=== PATIENT | male | born 1965 | race Caucasian/White ===

== ENCOUNTER → 2022-09-23 12:45 | Outpatient (BNVA) | payer OTHER, SELFPAY | PROVIDERS: PCP Internal Medicine; Visit Provider Neurological Surgery | DX: M51.36 Other intervertebral disc degeneration, lumbar region (principal) | CPT/HCPCS: 99211; 99212 ==

== ENCOUNTER → 2022-10-26 13:00 | Outpatient (BNVA) | payer OTHER, SELFPAY | PROVIDERS: PCP Internal Medicine; Visit Provider Anesthesiology | DX: M51.36 Other intervertebral disc degeneration, lumbar region (principal); M47.816 Spondylosis without myelopathy or radiculopathy, lumbar region; M47.817 Spondylosis without myelopathy or radiculopathy, lumbosacral region; G89.4 Chronic pain syndrome | CPT/HCPCS: 99202 ==

== ENCOUNTER 2023-01-04 14:11 | Outpatient (AMB) | payer OTHER, SELFPAY ==
--- NOTE | 2023-01-04 14:12 | MHC.OFFVIS ---
Intake Vital Signs 01/04/23 14:23 Height 5 ft 9 in Weight 179 lb BMI 26.4 BP 134/78 Blood Pressure Location Rt brachial Position Sitting Respiration 18 Pulse 63 Pulse Source Pulse Oximeter Pulse Oximetry (%) 97 Oxygen Delivery Method Room Air Intake Visit Reasons: Follow Up/Disc Degen Allergies No Known Allergies Allergy (Verified 01/04/23 14:24) HPI HPI Comments History of Present Illness Details Markus?is back in my office to discuss the reason why the insurance company denied the medial branch block diagnostic I scheduled in the past for this patient. He had extensive physical therapy in the past. He tried NSAID to treat his pain. He tries home stretches and those measures are minimally helpful for his pain. However he wants some sort of better and more continual solution for his pain. I will schedule him for diagnostic medial branch block L3-L4 dorsal ramus L5. Prior: complains on pain in lower back with radiation into bilateral lower extremities to the levels of the upper hips only.he is suffering from scoliosis.? he is working part-time.? He reports that he was physically active but with years in the advancement of this pain he stop performing his exercises.?? He was under care of Dr. Pierre in the past for ACDF surgery C5-C6, he went for the consultation to Dr. Ames, who examine his MRI and did not find any reason to perform surgery on this gentleman.? He reports that he had images of the lumbar spine MRI of the lumbar spine dictated as below.? He had physical therapy chiropractic manipulations massage therapy acupuncture therapy and 10s unit.? All of those help his pain in the back but they were short lived for his pain control.? He reports that he had epidural steroid injection done by Dr.Bernache marie and those were helpful for 3-4 weeks after the procedure however the pain all with would come back.? He reports that he receives 20 mg of oxycodone to times a day for his pain.? This is significant dose of the opioid medications.? His past medical history is negative.? The past surgical history is ACDF C5-C6.? Social history he denies smoking cigarettes denies drinking alcohol denies caffeinated beverages denies recreational drugs Review of Systems Const All systems reviewed & are unremarkable except as noted in HPI and below ENT Reports Normal hearing present Neuro Reports Normal hearing present, Denies Abnormal speech present, Denies confusion and Denies Sensory deficit (Neuro) Psych Denies confusion Physical Exam Vital Signs: Last Vital Signs Pulse 63 01/04/23 14:23 Resp 18 01/04/23 14:23 BP 134/78 01/04/23 14:23 Pulse Ox 97 01/04/23 14:23 Oxygen Delivery Method Room Air 01/04/23 14:23 BMI result Body Mass Index 26.4 Const General: healthy appearing, no acute distress and well developed; No confusion Nutritional Appearance: average body habitus and other (Well developed and very muscular.) Orientation/consciousness: patient oriented x3 and No confusion Eyes General: appearance normal, both eyes and all related structures Pupils: Equal, round and reactive pupils present EOM: EOMs intact bilaterally Neck Neck: Yes full ROM Chest Chest palpation & inspection: normal inspection of the chest Resp Effort & Inspection: normal respiratory effort, able to speak in complete sentences, normal respiratory pattern, no audible wheezes and no cough Cardio Jugular venous distension: no JVD GI Inspection: Yes normal to inspection Back/Spine/Pelvis Other: Reports tenderness on palpation in paraspinal spinal region in the projection of the lumbar spine approximately L4-5 and S1 spinous processes. SLR is negative bilaterally, Lassegue's test is negative bilaterally, Landon test is negative bilaterally and it actually alleviates his pain.. Swathi finger test is negative bilaterally. Able to flex forward without difficulty however moving back into vertical position from flexing forward aggravates his pain severely. Loading test is positive bilaterally. Neuro General: patient oriented x3, gait normal and No confusion Cranial nerves: Yes CN's II-XII intact bilaterally, Yes Equal, round and reactive pupils present, Yes Normal hearing present and Yes Ability to bilaterally elevate shoulders present Speech: No Abnormal speech present Gait exam (Neuro): Normal gait present Motor exam (neuro): 5/5 motor strength present throughout Sensory Exam: No Sensory deficit (Neuro) Extrem General: No pedal edema Psych Speech and movement: Normal speech and movement present Affect: normal affect Attitude: cooperative Thought process: Normal thought process present Thought content: Normal thought content present Insight: Good insight present (Psych) Judgement: Good judgement present (Psych) Results Reviewed Results Reviewed: MRI lumbar spine 08/10/2022. Findings: Lumbar sacral spine is normal in alignment. Grade 1 retrolisthesis at L5-S1. Vertebral bodies and posterior elements are unremarkable. Conus medullaris terminates at L1 and is normal in appearance. Schmorl's nodes at superior L3 and L4 with reactive edema. The cauda equina are unremarkable. The pre and paravertebral soft tissues are unremarkable. T12-L1: Disc height and signal within normal limits. No disc of contour abnormality spinal canal or neural foraminal narrowing. Facet joints within normal limits. L1-L2 disc height and signal within normal limits. No disc contour abnormalities spinal canal or neural foraminal narrowing. Facet joints are within normal limits. L2-L3 disc desiccation and [id number] circumferential annular disc bulge a symmetric to were the left. AP diameter spinal canal 20 mm. Moderate narrowing of left more than right neural foramina. Moderate bilateral facet arthrosis arthritis. L3-L4 disc desiccation and mild to moderate circumferential annular bulge a symmetric to word left. AP diameter spinal canal is 18 mm. Moderate narrowing of left more than right neural foramina. Mild to moderate bilateral facet osteoarthritis. L4-5: Moderate disc desiccation and moderate circumferential annular bulge. AP diameter canal is 18 mm. Moderate bilateral facet osteoarthritis. Moderate narrowing of both neural foramina. L5-S1: Moderate disc desiccation and moderate circumferential annular bulge. AP diameter spinal canal is 14 mm. Severe narrowing of left more than right neural foramina. Moderately severe bilateral facet arthritic osteoarthritis. Assessment & Plan Assessment & Plan (1) Lumbar degenerative disc disease: Code(s): M51.36 - Other intervertebral disc degeneration, lumbar region (2) Spondylosis without myelopathy or radiculopathy, lumbar region: Code(s): M47.816 - Spondylosis without myelopathy or radiculopathy, lumbar region (3) Spondylosis of lumbosacral joint without myelopathy: Code(s): M47.817 - Spondylosis without myelopathy or radiculopathy, lumbosacral region (4) Chronic pain syndrome: Code(s): G89.4 - Chronic pain syndrome Plan: I will schedule this patient for bilateral diagnostic L3 L4 dorsal ramus L5 medial branch block. His problem seem to be facetogenic pain. If this will not be helpful closer careful look into some of his desiccated discs may be taken and disc injections could be performed diagnostically to diagnose his discs. Unlikely he needs any surgery in his back. I will schedule him for follow-up after the injection. Coding Level of Care Code Est Pt Level 4 (93855) Diagnoses Lumbar degenerative disc disease M51.36 Spondylosis without myelopathy or radiculopathy, lumbar region M47.816 Spondylosis of lumbosacral joint without myelopathy M47.817 Chronic pain syndrome G89.4
[2023-01-04 14:23] VITALS: BP 134/78; PULSE 63; RESP 18; O2SAT 97; BMI 26.4
== END 2023-01-04 14:25 | disposition home or self-care (01) ==
PROVIDERS: PCP Internal Medicine; Visit Provider Anesthesiology
DX: G89.4 Chronic pain syndrome (principal); M51.36 Other intervertebral disc degeneration, lumbar region; M47.816 Spondylosis without myelopathy or radiculopathy, lumbar region; M47.817 Spondylosis without myelopathy or radiculopathy, lumbosacral region
CPT/HCPCS: 99214

== ENCOUNTER → 2023-01-04 14:11 | Outpatient (BNVA) | payer OTHER, SELFPAY | PROVIDERS: PCP Internal Medicine; Visit Provider Anesthesiology | DX: M51.36 Other intervertebral disc degeneration, lumbar region (principal); M47.816 Spondylosis without myelopathy or radiculopathy, lumbar region; M47.817 Spondylosis without myelopathy or radiculopathy, lumbosacral region; G89.4 Chronic pain syndrome | CPT/HCPCS: 99212 ==